=== PATIENT | female | born 1965 | race Two or more races ===

== ENCOUNTER 2019-03-09 14:59 | Emergency (ER) | payer OTHER ==
[~2019-03-09] VITALS: Ht 154.9 cm; Wt 89.4 kg
[~2019-03-09 14:59] MED LIST: BENA20TA9 PO; HYDR12.5 PO
[2019-03-09 15:07] VITALS: BP 169/102
[2019-03-09] MEDS ORDERED: KETOROLAC TROMETHAMINE INJ 30 MG/ML VIAL ONE (15:18)
[2019-03-09] MEDS ORDERED: KETOROLAC TROMETHAMINE INJ 60 MG/2 ML VIAL IM ONE (15:30)
--- NOTE | 2019-03-09 15:59 | NUR ---
Patient discharged to home in stable condition. Written and verbal after care instructions given. Patient verbalizes understanding of instruction.
== END 2019-03-09 15:59 | disposition home or self-care (01) ==
LOC: ER 14:59
DX: M25.561 Pain in right knee (principal); I10 Essential (primary) hypertension; Z98.890 Other specified postprocedural states
CPT/HCPCS: 29505; 73564; 96372; 99283; J1885